=== PATIENT | male | born 1965 | race Caucasian/White ===

== ENCOUNTER 2016-12-24 08:22 | Emergency (ER) | payer BC, OTHER ==
[~2016-12-24] VITALS: Ht 170.2 cm; Wt 102.6 kg
[2016-12-24 08:27] VITALS: BP 168/106; PULSE 86; TEMP 36.7; O2SAT 95; Ht 170.2 cm; Wt 102.6 kg
[2016-12-24] MEDS ORDERED: SULF800T23 PO (09:03)
--- NOTE | 2016-12-24 17:48 | EMERGENCY ROOM VISIT NOTE ---
ED Visit Note First contact with patient: 08:33 CHIEF COMPLAINT: Draining abscess on the right shoulder HISTORY OF PRESENT ILLNESS: This 51-year-old white male patient had a previous sebaceous cyst on his right shoulder. He had it incised and drained by Dr. Suggs 2 days ago. He had it packed. He is supposed to be in the office tomorrow for a dressing change. Patient was at home and was attempting to change his shirt. The dressing was knocked loose and some of the packing started to come out. He became concerned and reported here for evaluation. No fever, chills, nausea, vomiting, or loss of appetite. There is some foul- smelling drainage from the area. No other complaints. REVIEW OF SYSTEMS: REVIEW OF SYSTEM: HEENT: No dizziness, visual problems, hearing loss, or tinnitus. There is no difficulty swallowing and no oral lesions are present. PULMONARY: No cough, shortness of breath, sputum production or hemoptysis. CARDIOVASCULAR: No chest pain, palpitations, shortness of breath or peripheral edema. GASTROINTESTINAL: No diarrhea, constipation, nausea, vomiting, or abdominal pain. GENITOURINARY: No dysuria, frequency, urgency or nocturia. NEUROLOGIC: No weakness, muscle tenderness, epilepsy or history of neurological problems. MUSCULOSKELETAL: No history of joint tenderness/swelling. No history of arthritis or arthralgias. SKIN: No rashes. ENDOCRINE: No history of diabetes, thyroid disorders, or abnormal hair growth. PMH: Supplemental sheet was reviewed and signed. Previous surgeries: Heart catheterization, knee surgery, cancer excision, right shoulder I&D Medical History: Significant for skin problems, cancer, GERD, and heart disease. Current medications: Filed in patient's chart Allergies: Penicillin Family history: Significant for diabetes, heart disease, hypertension, and cancer. Mother is . Last tetanus: Within 10 years SOCIAL HISTORY: Employed. Lives with his father. Positive tobacco use, positive EtOH use. PHYSICAL EXAM: Vital Signs: Afebrile. Reviewed and filed in patient's chart. General: Well-developed, well-nourished, middle-aged white male, in no acute distress. Sitting on a bed. Alert and oriented. Skin: There is an indurated area on the right shoulder which measures about 8 cm in diameter. It is not warm to touch. He has a incision over the trapezius with visible packing. There is visible hawthorne-brown purulent drainage. This is expressible. Area is tender to touch. Musculoskeletal: Patient has intact motor function to his shoulder. Full range of motion. EMERGENCY DEPARTMENT COURSE: Informed oral consent was obtained for changing of the packing. His packing was removed. Copious purulent material was milked from the wound. Large waxy and chunky pieces were also removed by expression. Wound was irrigated with a dilute solution of Betadine and normal sterile saline under jet spray lavage. Forceps were used to remove additional cyst wall and waxy pieces. A large amount of debris was removed from the wound. It was then packed using sterile ribbon gauze. Outer dressing was placed. DIAGNOSIS: Wound packing of skin abscess right shoulder DISCHARGE INSTRUCTIONS & TREATMENT: Patient was educated regarding today's findings. Conservative care measures were discussed. Change the dressing if it becomes soiled or blood-stained. Continue on his Bactrim prescription. Follow-up with Dr. Suggs's office tomorrow as scheduled. Return if any problems such as fever or increasing pain develop. He will likely need consideration of excision of the cyst. Warm moist compresses to the area several times a day to promote drainage. I did speak with Dr. Suggs by telephone to make him aware of today's findings. Current/Historical Medications Scheduled Sulfamethoxazole-Trimethoprim (Bactrim Ds 800MG/160MG), 2 TAB PO BID Allergies Coded Allergies: Penicillins (Unverified Allergy, Unknown, ., 12/24/16) Vital Signs Date Time Temp Pulse Resp B/P Pulse Ox O2 Delivery O2 Flow Rate FiO2 12/24/16 08:27 36.7 86 17 168/106 95 Room Air Departure Information Impression Primary Impression: Wound check, abscess Dispostion Home / Self-Care Referrals Doug Suggs M.D. Forms WORK / SCHOOL INSTRUCTIONS, HOME CARE DOCUMENTATION FORM, IMPORTANT VISIT INFORMATION Patient Instructions My [facility] Additional Instructions Keep the dressing in place and keep it dry Change the dressing if it becomes soiled Follow-up with Dr. Suggs's office tomorrow for reevaluation Continue on your Bactrim
== END 2016-12-24 09:12 | disposition home or self-care (01) ==
LOC: C.EDB 08:25
DX: Z48.00 Encounter for change or removal of nonsurgical wound dressing (principal); Z98.890 Other specified postprocedural states; Z85.9 Personal history of malignant neoplasm, unspecified; Z88.0 Allergy status to penicillin; Z83.3 Family history of diabetes mellitus; Z82.49 Family history of ischemic heart disease and other diseases of the circulatory system; Z80.3 Family history of malignant neoplasm of breast; F17.200 Nicotine dependence, unspecified, uncomplicated